=== PATIENT | female | born 1985 | race African-American/Black ===

== ENCOUNTER 2022-11-07 15:14 | Emergency (ER) | payer OTHER, SELFPAY ==
[2022-11-07] VITALS (10 sets, daily range): BP systolic 122–184; BP diastolic 84–99; PULSE 54–75; RESP 13–22; O2SAT 98–100
--- NOTE | ~2022-11-07 | XR_ITS ---
EXAMINATION: XR chest 1V portable Exam Date/Time: 11/07/2022 15:30 CDT HISTORY: cp MIDSTERNAL TO MIDBACK X 2 MOS INTERMITTANT NO PRIOR HX Comparison: None available. RESULT: Lines, tubes, and devices: None. Lungs and pleura: Clear. Cardiomediastinal silhouette: Normal. Other: No acute osseous or upper abdominal finding. IMPRESSION: No acute cardiopulmonary process. Reviewed, dictated and finalized at location K.
--- NOTE | 2022-11-07 15:20 | ECG_ITS ---
Measurements Intervals [place] Rate: 61 P: 21 ND: 158 QRS: 25 QRSD: 86 T: 32 QT: 399 QTc: 404 Interpretive Statements SINUS RHYTHM WITH MARKED SINUS ARRHYTHMIA BASELINE ARTIFACT- I, II, III, AVR, AVL, AVF NORMAL ECG NO PREVIOUS ECG AVAILABLE FOR COMPARISON Electronically Signed On 11-07-2022 17:24:57 CDT by Arden Haywood D.O.
--- NOTE | 2022-11-07 15:36 | PC.NURSE ---
Dr. Wallace at bedside to assess pt.
--- NOTE | 2022-11-07 15:36 | ED.CHESTPAIN ---
HPI - Chest Pain General Chief Complaint: Chest Pain Stated Complaint: chest pain Time Seen by Provider: 11/07/22 15:26 Source: patient Mode of arrival: ambulatory Limitations: no limitations History of Present Illness HPI narrative: 37 years old -Per[place]ian female presents with chest pain started 2 months ago and lasted for few minutes and then gone. Came back again yesterday has been constant yesterday and today. No aggravating or relieving factors, aching, tightness, weird feeling of the chest anteriorly and posteriorly. Patient does not take medicine at home, history of migraine headache on Excedrin as needed, a lot of stress lately. She does not smoke or drink or uses drugs. Related Data Allergies Allergy/AdvReac Type Severity Reaction Status Date / Time No Known Allergies Allergy Verified 11/07/22 15:19 Course Vital Signs Vital signs: Vital Signs Pulse Rate 75 11/07/22 15:17 Respiratory Rate 16 11/07/22 15:17 Blood Pressure 184/99 H 11/07/22 15:17 Pulse Oximetry 98 11/07/22 15:17 Pulse Rate 59 L 11/07/22 16:02 Respiratory Rate 16 11/07/22 15:17 Blood Pressure 184/99 H 11/07/22 15:17 Pulse Oximetry 98 11/07/22 15:17 Oxygen Delivery Room Air 11/07/22 16:02 MDM - Chest Pain MDM Narrative Medical decision making narrative: Patient is 37 years old -Peruvian female presents with chest pain and back pain started yesterday, has been constant since. Cardiac score is 1. Patient have a lot of stress lately. She denies any fever, chills, shortness of breath. History of migraine headache. Physical examination is unremarkable. Differential diagnosis stress related symptoms, chest pain of unknown etiology, musculoskeletal. Chest pain protocol ordered. Blood work-up showed no significant finding to explain patient condition, troponin less than 0.012. EKG showed normal sinus rhythm at 61 bpm, normal EKG. No previous EKG available for comparison. Chest x-ray showed no acute cardiopulmonary process. Patient declined any antianxiety medication in the emergency room. Blood pressure on arrival to the ED was 184/99, at the time of discharge was 122/84. Anxiety related symptoms is my concern. the pt was discharged to home.the pt,s condition upon discharge was fair,education was provided to the pt in reference to the final impression,discharge study results,treatment,prognosis and need for follow up . Lab Data 11/07/22 15:57 11/07/22 15:57 Labs: Lab Results 11/07/22 11/07/22 11/07/22 Range/Units 15:57 15:57 15:57 WBC 6.7 (4.5-10.0) K/mm3 RBC 4.52 (4.2-5.4) M/mm3 Hgb 12.4 (12.0-15.0) g/dL Hct 37.1 (37.0-47.0) % MCV 82.1 (80-100) fl MCH 27.4 (26-34) pg MCHC 33.4 (32-36) g/dl RDW 14.5 (11.5-14.5) % Plt Count 318 (150-375) k/mm3 MPV 10.1 (7.4-10.4) fl Immature Gran % (Auto) 0.1 (0-0.5) % Neut % (Auto) 38.8 L (45.5-73.1) % Lymph % (Auto) 51.8 H (18.3-44.2) % [place] % (Auto) 4.3 (2.6-8.5) % Eos % (Auto) 4.6 H (0-4.4) % Baso % (Auto) 0.4 (0.2-1.2) % Lymph # (Auto) 3.48 H (0.9-3.2) K/mm3 [place] # (Auto) 0.3 (0.1-0.6) K/mm3 Eos # (Auto) 0.3 (0-0.3) K/mm3 Baso # (Auto) 0.0 (0.0-0.1) K/mm3 Abs Immat Gran (auto) 0.01 (0.00-0.031) K/mm3 Absolute Neuts (auto) 2.6 (1.3-6.7) K/mm3 Absolute Nucleated RBC 0.0 (0.0-0.012) K/mm3 Nucleated RBC % 0.0 (0.0-0.2) % PT 13.1 (11.1-14.7) Seconds INR 1.0 APTT 27.6 (22.3-36.8) SECONDS Sodium Pending Potassium Pending Chloride Pending Carbon Dioxide Pending Anion Gap Pending BUN Pending Creatinine Pending Estim Creat Clear Calc Pending Estimated GFR Pending Glucose Pending Calcium Pending Total Bilirubin Pending AST Pending ALT Pending Alkaline Phosphatase Pending Troponin I Pending Total Protein Pending A
[2022-11-07 16:03] LABS: Basophils Percent Auto 0.4 % (0.2-1.2); Eosinophils Absolute Auto 0.3 K/mm3 (0-0.3); Eosinophils Percent Auto 4.6 % (0-4.4); Hematocrit 37.1 % (37.0-47.0); Hemoglobin 12.4 g/dL (12.0-15.0); Immature Granulocyte Absolute 0.01 K/mm3 (0.00-0.031); Immature Granulocyte Percent A 0.1 % (0-0.5); Lymphocytes Absolute Auto 3.48 K/mm3 (0.9-3.2); Lymphocytes Percent Auto 51.8 % (18.3-44.2); Mean Corpuscular HGB Conc 33.4 g/dl (32-36); Mean Corpuscular Hemoglobin 27.4 pg (26-34); Mean Corpuscular Volume 82.1 fl (80-100); Mean Platelet Volume 10.1 fl (7.4-10.4); Monocytes Absolute Auto 0.3 K/mm3 (0.1-0.6); Monocytes Percent Auto 4.3 % (2.6-8.5); Neutrophils Absolute Auto 2.6 K/mm3 (1.3-6.7); Neutrophils Percent Auto 38.8 % (45.5-73.1); Platelet Count Result 318 k/mm3 (150-375); Red Blood Count 4.52 M/mm3 (4.2-5.4); Red Cell Distribution Width 14.5 % (11.5-14.5); White Blood Count 6.7 K/mm3 (4.5-10.0)
[2022-11-07 16:15] LABS: Partial Thromboplastin Time 27.6 SECONDS (22.3-36.8); Prothrombin Time 13.1 Seconds (11.1-14.7)
[2022-11-07 18:02] LABS: Alanine Aminotransferase 27 U/L (6-35); Albumin Level 4.6 g/dL (3.5-5.1); Alkaline Phosphatase 106 U/L (38-126); Anion Gap 7 mmol/L (8-16); Aspartate Amino Transferase 29 U/L (14-36); Bilirubin,Total 0.5 mg/dL (0.2-1.3); Blood Urea Nitrogen 4 mg/dL (7-17); Carbon Dioxide 28 mmol/L (22-30); Chloride 104 mmol/L (98-107); Estimated CRCL calculation 106 ml/min; Estimated Glomerular Filt Rate > 60; Glucose 86 mg/dL (65-110); Lipase 35 U/L (23-300); Potassium 3.7 mmol/L (3.4-5.0); Sodium 139 mmol/L (137-145)
[2022-11-07 18:12] LABS: Troponin I < 0.012 ng/mL (0.000-0.034)
== END 2022-11-07 18:44 | disposition home or self-care (01) ==
PROVIDERS: Emergency Provider Emergency Medicine; PCP Internal Medicine Rheumatology
DX: R07.89 Other chest pain (principal)
CPT/HCPCS: 36415; 71045; 80053; 83690; 84484; 85025; 85610; 85730; 93005; 99284

== ENCOUNTER 2023-07-30 08:43 | Emergency (ER) | payer BC, SELFPAY ==
--- NOTE | ~2023-07-30 | XR_ITS ---
EXAMINATION: XR ankle LT min 3V DATE: 07/30/2023 09:16 INDICATION: Left ankle pain TECHNIQUE: Anteroposterior, lateral, mortise, and additional oblique view of the ankle were obtained. COMPARISON: None. FINDINGS: There is lateral soft tissue swelling of ankle. Bone alignment is normal. There is no fract ure. The joint spaces are normal. IMPRESSION: 1. Lateral ankle soft tissue swelling without acute osseous abnormality identified. Reviewed, dictated and finalized at location F. [facility]NER IMPRESSION: 1. Lateral ankle soft tissue swelling without acute osseous abnormality identif ied.
[2023-07-30 08:57] VITALS: BP 145/88; PULSE 76; RESP 17; TEMP 36.4; O2SAT 100
--- NOTE | 2023-07-30 10:09 | ED.LOWEXIN ---
HPI - Extremity Injury (Lower) General Chief Complaint: Extremity Injury, Lower Stated Complaint: ankle pain LT Time Seen by Provider: 07/30/23 09:55 History of Present Illness HPI Narrative: Patient is a healthy 38-year-old female here after twisting her ankle yesterday. She states that yesterday evening she was at the gym using a StairMaster. She attempted to step off of the StairMaster and inverted her left ankle. She has been having no pain at rest at this time however any time she attempts to bear weight she does have significant pain on the lateral aspect of her left ankle. No prior orthopedic surgeries on this ankle. She has not been taking any medications at home for the pain. She did not fall to the ground, no additional injuries. She does not take any blood thinners. Related Data Allergies Allergy/AdvReac Type Severity Reaction Status Date / Time No Known Allergies Allergy Verified 07/30/23 09:00 Review of Systems Review of Systems: All systems reviewed & are unremarkable except as noted in HPI and below Exam Narrative: GENERAL: Well-appearing, well-nourished, and in no acute distress. HEAD: Normocephalic, atraumatic. ENT: Nares clear. Mucous membranes moist. CHEST: No respiratory distress. HEART: Regular rate and rhythm. Normal peripheral pulses. ABDOMEN: Soft, nontender EXTREMITIES: No bilateral hip tenderness, no bilateral knee tenderness with normal range of motion. She does have tenderness over the lateral malleolus of the left ankle with some mild swelling. normal range of motion, no bruising appreciated, normal DP pulse, normal sensation over the foot with good capillary refill throughout the foot. Right leg atraumatic SKIN: Warm, dry, no rash. NEURO: Alert and oriented x3. PSYCH: Normal mood and affect. Course Course Emergency Course: Chart review performed. Patient here with left ankle injury last night. Swelling and pain with ambulation. Triage vitals grossly normal. XR performed in triage showing soft tissue swelling, no fracture. Image reviewed by myself, no obvious fracture noted. Patient seen evaluated, nontoxic appearing. She has isolated injury to the left ankle with some mild lateral malleolar swelling and no ecchymosis. Given negative x-ray and exam suspect she likely has a ankle sprain. Advised stirrup splint and weight-bearing as tolerated with range of motion exercises at home. Additionally advised using ibuprofen for both swelling and pain, she declines any pain medication. I additionally offered crutches to use as needed, she refused these. She is advised follow-up with her primary care doctor in the next 1 week to ensure she is improving. The results of pertinent diagnostic studies and exam findings were discussed. The patient?s provisional diagnosis and plan of care were discussed with the patient and present family. The patient and/or present family expressed understanding of the diagnosis and plan. The nurse was instructed to provide written instructions and appropriate follow-up information. The patient understands their need and responsibility to obtain additional follow-up as instructed. The risks of medications administered and prescribed were discussed with the patient and family present. Vital Signs Vital signs: Vital Signs Temperature 97.5 F L 07/30/23 08:57 Pulse Rate 76 07/30/23 08:57 Respiratory Rate 17 07/30/23 08:57 Blood Pressure 145/88 H 07/30/23 08:57 Pulse Oximetry 100 07/30/23 08:57 Oxygen Delivery Room Air 07/30/23 08:57 Temperature 97.5 F L 07/30/23 08:57 Pulse Rate 61 07/30/23 11:16 Respiratory Rate 15 07/30/23 11:16 Blood Pressure 122/86 07/30/23 11:16 Pulse Oximetry 100 07/30/23 11:16 Oxygen Delivery Room Air 07/30/23 08:57 Discharge Plan Discharge Clinical Impression: Ankle sprain and strain Patient Disposition: Home, Self-Care Condition: Stable Instructions: Antibiotic Form, Ankle Sprai
[2023-07-30 11:16] VITALS: BP 122/86; PULSE 61; RESP 15; O2SAT 100
== END 2023-07-30 11:16 | disposition home or self-care (01) ==
PROVIDERS: Emergency Provider Student in an Organized Health Care Education/Training Program
DX: S93.402A Sprain of unspecified ligament of left ankle, initial encounter (principal); S96.912A Strain of unspecified muscle and tendon at ankle and foot level, left foot, initial encounter; X50.9XXA Other and unspecified overexertion or strenuous movements or postures, initial encounter; Y93.A1 Activity, exercise machines primarily for cardiorespiratory conditioning
CPT/HCPCS: 73610; 99283

== ENCOUNTER 2025-03-06 11:42 | Emergency (ER) | payer BC, SELFPAY ==
[2025-03-06 11:45] VITALS: BP 121/76; PULSE 58; RESP 16; TEMP 36.6; O2SAT 100
--- OUTSIDE RECORDS SUMMARY | 2025-03-06 12:06 | XMS_ITS | Clinical Summary ---
Author Organization [facility] Address [address] [place] [address] Care Team Providers Care Wooden Shade Hardware Installer Name Role Phone Hillary Mascorro Primary Care Provider + Source Comments [facility],non-owned Affiliates and Associated Physician Practices is amultiple site organization consisting of ambulatory clinics and hospital sitesin [place], [place], [place] and [place]. This disclosure is being madepursuant to the Care Everywhere program and may not contain all information available regarding this patient. Last updated 18.[facility] Allergies No known active allergies Medications * Be aware that medications may not be up to date on this document. Alwaysverify current medications with the patient. ferrous sulfate 325 (65 FE) MG tablet Take 1 tablet by mouth once daily 100 tablet 8 Active Cyanocobalamin (B-12) 1000 MCG TABS Take 1 tablet by mouth once daily Ok to subs for alternate form (capsule, etc). 100 tablet 1 8 Active vitamin D3 (CHOLECALCIFERO L) 1000 UNITS tablet Take 1 tablet by mouth once daily Ok to subs for alternate form (capsule, etc) 100 tablet 1 8 Active aspirin-acetami nophen-caffeine 250-250-65 MG tablet Take 2 tablets by mouth every 4 hours as needed Active cyclobenzaprine (Flexeril) 10 MG tablet Take 1 (one) tablet by mouth 3 times daily as needed for Muscle Spasms 10 tablet 4 Active lidocaine (Lidoderm) 5 % patch Apply 1 (one) patch to skin once daily Apply patch to most painful area and remove after 12 hours. May reapply a new patch 12 hours later. 5 patch Active Active Problems Problem Noted Date Diagnosed Date History of migraine 05/18/2019 Seborrheic eczema 06/05/2016 Gas 10/17/2014 Macromastia 10/17/2014 Abdominal pain, generalized 09/27/2014 Encounter for routine gynecological examination 03/26/2013 Overview (08/10/2021): 11/27 normal pap 05/30 normal pap 10/03- pap adequate, negative 04/03 normal pap 10/06 normal pap neg hpv 08/11 nilm neg hpv Resolved Problems Problem Noted Date Diagnosed Date Resolved Date Constipation 10/17/2014 01/01/2015 Family History Medical History Relation Name Comments Dementia Father Diabetes - Type 2 Father Other Maternal Grandfather pulm/ca rdiac issue Sarcoidosis Mother None Known Sister Relation Name Status Comments Father Maternal Grandfather Maternal Grandmother Alive Mother Sister Alive Social History Tobacco Use Types Packs/Day Years Used Date Smoking Tobacco: Never Smokeless Tobacco: Never Alcohol Use Standard Drinks/Week Comments No 0 (1 standard drink = 0.6 oz pur e alcohol) Comments Unknown Sex and Gender Information Value Date Recorded Sex Assigned at Female 09/23/2021 8:51 AM CABLE TELEVISION LINE TECHNICIAN Legal Sex Female 5:25 AM CABLE TELEVISION LINE TECHNICIAN Gender Identity Female 09/23/2021 8:51 AM CABLE TELEVISION LINE TECHNICIAN Sexual Orientation Straight 09/23/2021 8: 51 AM CABLE TELEVISION LINE TECHNICIAN Last Filed Vital Signs Vital Sign Reading Time Taken Comments Blood Pressure 138/77 06/07/2024 9:56 AM CDT Pulse 67 06/07/2024 9:56 AM CDT Temperature 36 C (96.8 F) 06/07/2024 9:56 AM CDT Respiratory Rate 16 06/07/2024 9:56 AM CDT Oxygen Saturation 100% 06/07/2024 9:56 AM CDT Inhaled Oxygen Concentration - - Weight 98.4 kg (217 lb) 07/30/2021 4:03 PM CABLE TELEVISION LINE TECHNICIAN Height 157.5 cm (5' 2) 06/07/2024 9:56 AM CDT Body Mass Index 39.06 07/30/2021 4:03 PM CABLE TELEVISION LINE TECHNICIAN Plan of Treatment Health Maintenance Due Date Last Done Comments LIPID TESTING 1984 MAMMOGRAM 1984 DTAP/TDAP/TD VACCINES (1 - Tdap) 01/29/2003 HEPATITIS B VACCINE (1 of 3 - 19+ 3-dose series) 01/29/2003 HPV VACCINE (1 - 3-dose SCDM series) 01/29/2011 COVID-19 VACCINE (1 - 2023-2 5 season) 2024 DEPRESSION SCREENING 08/22/2024 INFLUENZA VACCINE (#1) 2025 PAP with HPV 07/30/2026 07/30/2021 ZOSTER VACCINE (1 of 2) 01/29/2034 HEPATITIS C SCREENING Completed 10/17/2014 , 09/30/2011, 10/13/2009 HIV SCREENING Completed 08/03/2017, 10/17/2014, 09/30/2011 HIB VACCINE Aged Out No longer eligi ble based on patient's age to complete this topic MENINGOCOCCAL (Group B) VACCINE SHARED DECISION-MAKING Aged Out No longer eligible based on patient's age to complete this topic MENINGOCOCCAL GROUPS A/C/Y/W VACCINE Aged Out No longer eligible b ased on patient's age to complete this topic PNEUMOCOCCAL VACCINE Aged Out No long er eligible based on patient's age to complete this topic Procedures Procedure Name Priority Date/Time Associated Diagnosis Comments HPV DETECTION HIGH RISK SHAZIA Routine 07/30/2021 4:46 PM CABLE TELEVISION LINE TECHNICIAN Well woman exam with routine gynecological exam HIV-1 HIV-2 ANTIGEN/ANTIBODY Routine 08/03/2017 10:08 AM CABLE TELEVISION LINE TECHNICIAN HEPATITIS C ANTIBODY Routine 10/17/2014 10:57 AM CABLE TELEVISION LINE TECHNICIAN from Last 3 Months or Most Recently Relevant to Health Maintenance Results * HPV DETECTION HIGH RISK SHAZIA (07/30/2021 4:46 PM CABLE TELEVISION LINE TECHNICIAN) High Risk Human Papilloma Result Not detected Not detected 08/05/2021 7:30 AM CABLE TELEVISION LINE TECHNICIAN [facility] High Risk Human Papilloma Interp 08/05/2021 7:30 AM CABLE TELEVISION LINE TECHNICIAN [facility] Comment:High Risk Human Abdon lloma Virus was Not Detected. Pathology/Cytolo gy MISCELLANEOUS SAMPLES / Unknown 07/30/2021 4:46 PM CABLE TELEVISION LINE TECHNICIAN 07/31/2021 11:44 AM CABLE TELEVISION LINE TECHNICIAN Narrative [facility] - 08/05/2021 7:30 AM CABLE TELEVISION LINE TECHNICIAN Nucleic acid isolated from the specimen was analyzed with a nucleic acid amplification test (FDA approved Gen-Probe HPV Assay) to detect high risk human papilloma virus (Types: 16, 18, 31, 33, 35, 39, 45, 51, 52, 56, 58, 59, 66, and 68). The reference range is Not Detected. Comment: These test results should not be used as the sole basis for clinical assessment and treatment of patients. These results should always be correlated with other available data (cytology, histology, and clinical information). us Cassidy Ramirez MD LAB - MICROBIOLOGY ORDERABLES Fi nal Result [facility] [address] [place] [address], [facility] [phone] * HIV-1 HIV-2 ANTIGEN/ANTIBODY (08/03/2017 10:08 AM CABLE TELEVISION LINE TECHNICIAN) HIV Antigen/Antibody 4th Generation NON-REACT TORRES NON-REACT TORRES [facility] ([facility]) Comment: HIV-1 antigen and HIV-1/HIV-2 antibodies were not detected. There is no laboratory evidence of HIV infection. PLEASE NOTE: This information has been disclosed to you from records whose confidentiality may be protected by state law. If your state requires such protection, then the state law prohibits you from making any further disclosure of the information without the specific written consent of the person to whom it pertains, or as otherwise permitted by law. A general authorization for the release of medical or other information is NOT sufficient for this purpose. For additional information please refer to http://education.[employer]/faq/ABP563 (This link is being provided for informational/ educational purposes only.) The performance of this assay has not been clinically validated in patients less than 2 years old. Test Performed at: [facility] [id number] [place] [address] SIDRA SOLARES DO,MPH 08/03/2017 10:0 8 AM CABLE TELEVISION LINE TECHNICIAN 08/03/2017 10:09 AM CABLE TELEVISION LINE TECHNICIAN us Reddy Miles MD LAB - HEMATOLOGY ORDERABLES Ed ited Result - Final Performing Organization Address [facility] de Phone Number [facility] ([facility]) [phone] * HEPATITIS C ANTIBODY (10/17/2014 10:57 AM CABLE TELEVISION LINE TECHNICIAN) Hepatitis C Antibody NON-REACTI VE NON-REACT TORRES [facility]) Signal/Cutoff 0.01 <1.00 [facility]) Comment: Test Performed at: [facility] [id number] [place] [address] SIDRA SOLARES DO,MPH Blood specimen (specimen) BLOOD SPECIMEN / Unknown 10/17/2014 10:57 AM CABLE TELEVISION LINE TECHNICIAN 10/17/2014 10:57 AM CABLE TELEVISION LINE TECHNICIAN us Cassidy Ramirez MD LAB - CHEMISTRY ORDERABLES Edite d Result - Final Performing Organization Address [facility] de Phone Number [facility] ([facility]) [address] from Last 3 Months or Most Recently Relevant to Health Maintenance Insurance Member Subscriber Plan / Payer (Ef fective for All Dates) Name:Ling Lee Relation to Subscriber:Self Name:Ling Lee Payer ID:Not on file Group ID:Not on file Type:Third [employer] Party Liability Address: [address] [facility] MEDICAID Care Teams Wooden Shade Hardware Installer Relationship Specialty Start Date End Date Hillary Mascorro APRN-BRITTNI PCP - General 04/24/19
--- OUTSIDE RECORDS SUMMARY | 2025-03-06 12:52 | XMS_ITS | Clinical Summary ---
Author Organization [facility] Address [address] [place] [address] Care Team Providers Care Environmental Professional Name Role Phone Hillary Mascorro Primary Care Provider + Source Comments [facility],non-owned Affiliates and Associated Physician Practices is amultiple site organization consisting of ambulatory clinics and hospital sitesin [place], [place], [place] and [place]. This disclosure is being madepursuant to the Care Everywhere program and may not contain all information available regarding this patient. Last updated 18.[facility] Allergies No known active allergies Medications * [...] Sex Assigned at Female 09/23/2021 8:51 AM RECOATER Legal Sex Female 5:25 AM RECOATER Gender Identity Female 09/23/2021 8:51 AM RECOATER Sexual Orientation Straight 09/23/2021 8: 51 AM RECOATER Last Filed Vital Signs Vital Sign Reading Time Taken Comments Blood Pressure 138/77 06/07/2024 9:56 AM CDT Pulse 67 06/07/2024 9:56 AM CDT Temperature 36 C (96.8 F) 06/07/2024 9:56 AM CDT Respiratory Rate 16 06/07/2024 9:56 AM CDT Oxygen Saturation 100% 06/07/2024 9:56 AM CDT Inhaled Oxygen Concentration - - Weight 98.4 kg (217 lb) 07/30/2021 4:03 PM RECOATER Height 157.5 cm (5' 2) 06/07/2024 9:56 AM CDT Body Mass Index 39.06 07/30/2021 4:03 PM RECOATER Plan of Treatment Health Maintenance Due Date [...] HIGH RISK SHAZIA Routine 07/30/2021 4:46 PM RECOATER Well woman exam with routine gynecological exam HIV-1 HIV-2 ANTIGEN/ANTIBODY Routine 08/03/2017 10:08 AM RECOATER HEPATITIS C ANTIBODY Routine 10/17/2014 10:57 AM RECOATER from Last 3 Months or Most Recently Relevant to Health Maintenance Results * HPV DETECTION HIGH RISK SHAZIA (07/30/2021 4:46 PM RECOATER) High Risk Human Papilloma Result Not detected Not detected 08/05/2021 7:30 AM RECOATER [facility] High Risk Human Papilloma Interp 08/05/2021 7:30 AM RECOATER [facility] Comment:High Risk Human Abdon lloma Virus was Not Detected. Pathology/Cytolo gy MISCELLANEOUS SAMPLES / Unknown 07/30/2021 4:46 PM RECOATER 07/31/2021 11:44 AM RECOATER Narrative [facility] - 08/05/2021 7:30 AM RECOATER Nucleic acid isolated from the specimen was [...] LAB - MICROBIOLOGY ORDERABLES Fi nal Result [facility] [address] [place] [address], [facility] [phone] * HIV-1 HIV-2 ANTIGEN/ANTIBODY (08/03/2017 10:08 AM RECOATER) HIV Antigen/Antibody 4th Generation NON-REACT TORRES NON-REACT TORRES [facility] ([facility]) Comment: HIV-1 antigen and HIV-1/HIV-2 antibodies were [...] purpose. For additional information please refer to http://education.[employer]/faq/RFK081 (This link is being provided for informational/ educational purposes only.) The performance of this assay has not been clinically validated in patients less than 2 years old. Test Performed at: [facility] [address] [place] [address] SIDRA SOLARES DO,MPH 08/03/2017 10:0 8 AM RECOATER 08/03/2017 10:09 AM RECOATER us Reddy Miles MD LAB - HEMATOLOGY ORDERABLES Ed ited Result - Final Performing Organization Address [facility] de Phone Number [facility] ([facility]) [phone] * HEPATITIS C ANTIBODY (10/17/2014 10:57 AM RECOATER) Hepatitis C Antibody NON-REACTI VE NON-REACT TORRES [facility]) Signal/Cutoff 0.01 <1.00 [facility]) Comment: Test Performed at: [facility] [id number] [place] [address] SIDRA SOLARES DO,MPH Blood specimen (specimen) BLOOD SPECIMEN / Unknown 10/17/2014 10:57 AM RECOATER 10/17/2014 10:57 AM RECOATER us Cassidy Ramirez MD LAB - CHEMISTRY ORDERABLES Edite d Result - Final Performing Organization Address [facility] de Phone Number [facility] ([facility]) [phone] from Last 3 Months or Most Recently Relevant to Health Maintenance Insurance Member Subscriber Plan / Payer (Ef fective for All Dates) Name:Ling Lee Relation to Subscriber:Self Name:Ling Lee Payer ID:Not on file Group ID:Not on file Type:[employer] Party Liability Address: [address] [facility] MEDICAID Care Teams Environmental Professional Relationship Specialty Start Date End Date Hillary Mascorro APRN-BRITTNI PCP - General 04/24/19
--- NOTE | 2025-03-06 16:44 | ED.GENADULT ---
HPI - General Adult General Chief complaint: Unspecified Stated complaint: RIGHT SHOULDER PAIN Time Seen by Provider: 03/06/25 12:42 History of Present Illness HPI narrative: Patient has right shoulder pain after an accident 6 months ago, had not bothered her and while until a few days ago when he started acting up again. Went to another clinic where she was given Toradol which basically resolved her pain. Related Data Allergies Allergy/AdvReac Type Severity Reaction Status Date / Time No Known Allergies Allergy Verified 07/30/23 09:00 Review of Systems Review of Systems: All systems reviewed & are unremarkable except as noted in HPI and below Exam Narrative: EXAMINATION OF ORGAN SYSTEMS/BODY AREAS: Constitutional: Vital signs per nursing GENERAL:[No acute distress, non-toxic appearing.] HEAD: Normal with no signs of head trauma. EYES: EOMI, conjunctiva normal ENT: Hearing grossly intact LUNGS: Nonlabored breathing. HEART: [Regular rate and rhythm], normal radial pulse ABD: [Soft], [nontender to palpation] EXT: Normal range of motion right shoulder, some slight tenderness to palpation SKIN: [No rashes or lesions.] NEURO: [Alert and oriented x 3. No gross focal sensory or strength deficits.] PSYCH: Normal affect Course Vital Signs Vital signs: Vital Signs Temperature 97.8 F 03/06/25 11:45 Pulse Rate 58 L 03/06/25 11:45 Respiratory Rate 03/06/25 11:45 Blood Pressure 121/76 03/06/25 11:45 Pulse Oximetry 100 03/06/25 11:45 Oxygen Delivery Room Air 03/06/25 11:45 Temperature 97.8 F 03/06/25 11:45 Pulse Rate 58 L 03/06/25 11:45 Respiratory Rate 16 03/06/25 11:45 Blood Pressure 121/76 03/06/25 11:45 Pulse Oximetry 100 03/06/25 11:45 Oxygen Delivery Room Air 03/06/25 11:45 Medical Decision Making [facility] Narrative Medical decision making narrative: Patient presents here with right shoulder pain, prior history of injury, she is well-appearing here, neurovascularly intact, no recent injury so I do not feel x-rays necessary, short he feels better after getting the Toradol from another clinic, is agreeable to trying steroid course here with follow-up to Orthopedics. Vital Signs Vital Signs: Vital Signs Temperature 97.8 F 03/06/25 11:45 Pulse Rate 58 L 03/06/25 11:45 Respiratory Rate 16 03/06/25 11:45 Blood Pressure 121/76 03/06/25 11:45 Pulse Oximetry 100 03/06/25 11:45 Oxygen Delivery Room Air 03/06/25 11:45 Temperature 97.8 F 03/06/25 11:45 Pulse Rate 58 L 03/06/25 11:45 Respiratory Rate 16 03/06/25 11:45 Blood Pressure 121/76 03/06/25 11:45 Pulse Oximetry 100 03/06/25 11:45 Oxygen Delivery Room Air 03/06/25 11:45 Discharge Plan Discharge Clinical Impression: Right shoulder pain Patient Disposition: Home Condition: Stable Instructions: Shoulder Pain (ED) Additional Instructions: Please follow up with the orthopedic doctor; you can try the steroids as prescribed; and come back if things worsen. Patient Language: Sudanese Prescriptions: New prednisone 20 mg tablet 40 mg PO DAILY 4 Days Qty: 8 0RF No Action clonazepam 0.25 mg tablet,disintegrating 0.25 mg PO BID Qty: 14 0RF Follow-up/Referrals: PHYSICIAN,[employer] TRA[employer]NAGER [Primary Care Provider] - Wing Keys MD [Physician] - 2 Days
== END 2025-03-06 13:21 | disposition home or self-care (01) ==
PROVIDERS: Emergency Provider Emergency Medicine
DX: M25.511 Pain in right shoulder (principal)
CPT/HCPCS: 99283; J7512